=== PATIENT | female | born 1990 | race Caucasian/White ===

== ENCOUNTER 2017-11-13 04:19 | Emergency (ER) | payer BC, OTHER ==
[2017-11-13 04:47] LABS: Bilirubin Negative (Negative); Blood, Urine Moderate (Negative); Clarity Clear (Clear); Glucose, Urine (Dipstick) Negative (Negative); Leukocyte Trace (Negative); Nitrite Negative (Negative); Protein, Urine (Dipstick) Trace mg/dL (Neg-Trace); Specific Gravity, Urine 1.025 (1.005-1.030); Urobilinogen 0.2 mg/dL (0.2-1.0)
[2017-11-13 04:48] LABS: Bacteria/HPF Rare-Few HPF (None Seen); Hyaline Casts/LPF 0-3 HYALINE CAST LPF (0-3 Hyaline); Squamous Epithelial 0-3 HPF (0-3); WBC/HPF 0-3 HPF (0-3)
[2017-11-13] MEDS ORDERED: Ondansetron HCl/PF 4 MG/2 ML Vial ONE (04:57)
[2017-11-13 05:02] LABS: Hemoglobin 10.6 g/dL (12.0-16.0); Mean Corpuscular Hemoglobin 21.5 pg (27.0-31.0); Mean Corpuscular Volume 69.3 fL (78.0-98.0); Mean Platelet Volume 6.6 fL (7.4-10.4); Platelet Count 352 thou/uL (130-400); RBC Distribution Width 15.6 % (11.5-14.5); Red Blood Cell (RBC) Count 4.93 mill/uL (4.20-5.40); White Blood Cell (WBC) Count 8.4 thou/uL (4.8-10.8)
[2017-11-13 05:05] LABS: ALT (SGPT) 24 U/L (8-55); AST (SGOT) 20 U/L (5-34); Albumin 3.9 g/dL (3.5-5.0); Alkaline Phosphatase 134 U/L (40-150); Anion Gap 14 mmol/L (10-20); BUN (Urea Nitrogen) 16 mg/dL (7.0-18.7); Bilirubin, Total 0.4 mg/dL (0.2-1.2); Calc. Creatinine Clearance 0 mL/min (70-130); Calcium 9.4 mg/dL (7.8-10.44); Carbon Dioxide 24 mmol/L (22-29); Chloride 107 mmol/L (98-107); Estimated GFR-MDRD 89; Globulin 2.9 g/dL (2.4-3.5); Glucose 101 mg/dL (70-105); Potassium 3.9 mmol/L (3.5-5.1); Protein, Total 6.8 g/dL (6.0-8.3); Sodium 141 mmol/L (136-145)
[2017-11-13 05:13] LABS: #Basophils 0.1 thou/uL (0.0-0.2); #Eosinphils 0.3 thou/uL (0.0-0.7); #Lymphocytes 2.8 thou/uL (1.20-3.40); #Monocytes 0.6 thou/uL (0.11-0.59); #Neutrophils 4.7 thou/uL (1.40-6.50); %Basophils 1.3 % (0.0-1.0); %Eosinophils 3.3 % (0.0-10.0); %Lymphocytes 32.7 % (21.0-51.0); %Monocytes 6.7 % (0.0-10.0); Anisocytosis SLIGHT = 6-15 cells (100X) (0-5/hpf); Hypochromia SLIGHT = 6-15 cells (100X) (0-5/hpf); MDiff Complete? YES; Microcytosis SLIGHT = 6-15 cells (100X) (0-5/hpf)
[2017-11-13] MEDS ORDERED: Morphine 4 MG/ML Carpuject ONE ×2 (05:48→07:57)
--- NOTE | 2017-11-13 08:21 | ULT ---
RENAL ULTRASOUND: INDICATION: Followup right ureteral calculus. The right kidney measures 12 cm in length. The left kidney measures 13.8 cm length. No hydronephros is identified. The kidneys are unremarkable with no evidence of mass or cystic lesion. The urinary bladder is distended and appears unremarkable. The technologist visualized both ureteral jets. Of incidental note is a mildly enlarged spleen measuring up to 16 cm. IMPRESSION: 1. No evidence of hydronephrosis. 2. Evidence of mild splenomegaly. POS: [facility]
--- NOTE | 2017-11-13 08:47 | CT ---
PRELIMINARY REPORT/[facility]/EMERGENTY AFTER-HOURS PROCEDURE CT Abdomen and Pelvis Without Intravenous Contrast CLINICAL HISTORY: 27 years old, female; Pain; Abdominal pain; Other: Lower back pain; Patient HX: Lower back pain, 3wee ks post . Hs of nash and tubal TECHNIQUE: Axial computed tomography images of the abdomen and pelvis without intravenous contrast. All CT scans at this facility use at least one of these dose optimization techniques: automated exposure control; mA and/or kV adjustment per patient size (includes targeted exams where dose is matched to clinical indication); or iterative reconstruction. Coronal reformatted images were created and reviewed. COMPARISON: No relevant prior studies available. FINDINGS: Lung bases: The visualized portions of the lung bases are normal. ABDOMEN: Liver: The liver is within normal limits for this noncontrast study. Gallbladder and bile ducts: There has been a cholecystectomy. No ductal dilation. Pancreas: The pancreas appears normal. No ductal dilation. Spleen: The spleen is normal. Adrenals: The adrenal glands are normal. Kidneys and ureters: There is a 2 x 2 mm RIGHT UVJ/distal RIGHT ureter obstructing calculus. RIGHT renal collecting system is not well visualized. There is mild LEFT hydroureteronephrosis with f ocal calcification in the LEFT pelvis possibly representing an intraureteral obstructing calculus dion manuela extraureteral phlebolith. Stomach and bowel: The stomach is normal. The colon is normal. No obstruction. No mucosal thickening. PELVIS: Appendix: A normal appendix is identified. Bladder: Urinary bladder is normal.. Reproductive: The uterus is normal. ABDOMEN and PELVIS: Intraperitoneal space: Normal. No free air. No significant fluid collection. Bones/joints: No acute fracture. No dislocation. Soft tissues: Normal. Vasculature: Normal. No abdominal aortic aneurysm. Lymph nodes: Normal. No enlarged lymph nodes. IMPRESSION: 1. There is a 2 x 2 mm RIGHT UVJ/distal RIGHT ureter obstructing calculus. RIGHT renal collecting sys tem is not well visualized. Complete retroperitoneal ultrasound evaluation may be helpful. 2. There is mild LEFT hydroureteronephrosis with focal calcification in the LEFT pelvis possibly repr esenting an intraureteral obstructing calculus versus extraureteral phlebolith. Findings were discussed with FIORELLA CANALES at 11/13/2017 6:02 AM CDT. Thank you for allowing us to participate in the care of your patient. Dictated and Authenticated by: Richi Albarado MD 11/13/2017 6:02 AM Central Time ([place] & [place]) FINAL REPORT CT ABDOMEN AND PELVIS NONCONTRAST: DATE: 11/13/17. TIME: Performed on an emergency basis at 0517 hours. HISTORY: Flank pain. FINDINGS: Agree with the preliminary report by Dr. Albarado from [facility]. Low-grade obstruction at a 2 mm right ureterovesicular junction calculus is evident. Mild left hydronephrosis with probable tiny partially obstructing distal left ureteral calculus. POS: [facility]
== END 2017-11-13 08:16 | disposition home or self-care (01) ==
LOC: SCSER 04:19
DX: N13.2 Hydronephrosis with renal and ureteral calculous obstruction (principal)
CPT/HCPCS: 74176; 76700; 76770; 80053; 81003; 81015; 85025; 96361; 96374; 96375; 96376; J2270; J2405

== ENCOUNTER 2022-02-24 14:19 | Outpatient (CLI) | payer BC | END 2022-02-24 14:20 | disposition home or self-care (01) | LOC: BICMAMMO 14:19 | PROVIDERS: ATTEND Family Medicine Sports Medicine | DX: N63.21 Unspecified lump in the left breast, upper outer quadrant (principal) | CPT/HCPCS: 77066; G0279 ==